=== PATIENT | female | born 1990 | race Caucasian/White ===

== ENCOUNTER 2023-09-04 17:46 | Emergency (ER) | payer BC ==
[2023-09-04 18:08] VITALS: TEMP 98.8
--- NOTE | 2023-09-04 18:48 | ERPHSYRPT ---
- History of Present Illness Time Seen by Provider: 09/04/23 18:46 Source: patient, family Exam Limitations: no limitations Patient Subjective Stated Complaint: Pt states that she went to the [facility] on Tuesday due to her ear felt clogged and while she was there she began having major anxiety, the anxiety has gotten worse since then and her ear is still clogged, pt also had a CT with contrast on Tuesday and unsure if that had something to do with her anxiety Triage Nursing Assessment: Pt brought to the ER by her , hypertensive, tachycardic, denies pain, tearful, right ear clogged, was told that she had a middle ear infection, pt is on adderall but has not taken it since and was afraid to take it on Tuesday thinking it would make her feel worse, pt takes alprazolam at night to help her sleep but hasn't tried taking it during the day to help with the anxiety, pulses normal, skin n/w/d, no difficulty breathing, doesn't appear to be in any distress Physician History: pt is received form Dr. 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 Pt reports Hx of anxiety but none at this level. No Si or HI. No hx trauma. Had Flu 2 weeks ago and got over it OK per pt. Had CT abd this week for abd pain now resolved finding stool thickened wall cecum, diverticulosis not active, adb is soft nntender without peritoneal signs mass or distension. No Cp dizziness, headache fever, shortness of breath but with maybe tightness of chest as part of anxiety per pt so will get cardiac labs and D dimer. Neuro exam normal mental status normal, Fundi benign. no rash no meningismis. TM still erythematous left normal rt. pharynx clear and swallowing OK in ER> Hx left hip pain but full ROM both hips nontender amb without pain. here in ER as confirmatory independent source of Hx. Discussed risks/benefits Ativan Tx, CXR, EKG, D dimer, trops, HCG, BNP, Thyroid T4 TSH, COvid Flu, Strep, RSV, Lactate, and they wish to proceed. These are ordered, results discussed., Timing/Duration: today Severity of Symptoms-Max: moderate Severity of Symptoms-Current: moderate Context related to: other (unknown) Suicidal thoughts: other (none) Associated Symptoms: anxiety Previous symptoms: other (increase in anxiety) Allergies/Adverse Reactions: No Known Drug Allergies Allergy (Verified 09/04/23 18:08) Home Medications: ALPRAZolam [Alprazolam] 0.5 mg PO HS 09/04/23 [History] Albuterol Sulfate [Albuterol Sulfate Hfa] 1 - 2 inh PO Q4-6HPRN PRN 09/04/23 [History] Dextroamphetamine/Amphetamine [Dextroamp-Amphetamin 20 mg Tab] 20 mg PO TID 09/04/23 [History] Doxycycline Hyclate 100 mg [Vibramycin 100 MG] 100 mg PO BID 09/04/23 [History] Hydroxyzine HCl 25 mg [Atarax 25 mg] 25 mg PO BID 09/04/23 [History] norgestimate-ethinyl estradioL [Gyk-Cb-Mpfjfa Tablet] 1 each PO DAILY 09/04/23 [History] Hx Influenza Vaccination/Date Given: No Hx Pneumococcal Vaccination/Date Given: No Travel Risk - International Travel Have you traveled outside of the country in past 3 weeks: No - Coronavirus Screening Are you exhibiting any of the following symptoms?: No Close contact with a COVID-19 positive Pt in past 14-21 Days: No - Vaccine Status Have you recieved a Covid-19 vaccination: No - Past Medical History Pertinent Past Medical History: Yes Other Medical History: sleeping disorder - Past Surgical History Past Surgical History: Yes Female Surgical History: Dilation & Curettage Other Surgical History: wisdom teeth - Female History Hx Last Menstrual Period: 08/27/2023 Hx Now: No - Social History Smoking Status: Current every day smoker Exposure to second hand smoke: Yes Drug Use: none Patient Lives Alone: No - Review of Systems Constitutional: No Fever, No Chills Eyes: No Symptoms Ears, Nose, & Throat: Ear Pain Respiratory: No Cough, No Dyspnea Cardiac: Other (chest tightness), No Chest Pain, No Edema, No Syncope Abdominal/Gastrointestinal: No Abdominal Pain, No Nausea, No Vomiting, No Diarrhea Genitourinary Symptoms: No Dysuria Musculoskeletal: No Back Pain, No Neck Pain Skin: No Symptoms, No Rash Neurological: No Dizziness, No Focal Weakness, No Sensory Changes Psychological: Anxiety, No Suicidal Ideations, No Hallucinations Endocrine: No Symptoms Hematologic/Lymphatic: No Symptoms Immunological/Allergic: No Symptoms All Other Systems: Reviewed and Negative - Nursing Vital Signs Nursing Vital Signs: Initial Vital Signs Temperature 98.8 F 09/04/23 17:55 Pulse Rate 123 H 09/04/23 17:55 Blood Pressure 168/120 09/04/23 17:55 O2 Sat by Pulse Oximetry 96 09/04/23 17:55 Pain Scale Pain Intensity 0 - Physical Exam General Appearance: no apparent distress Eyes, Ears, Nose, Throat Exam: normal ENT inspection, moist mucous membranes Neck Exam: normal inspection, non-tender, supple Respiratory Exam: normal breath sounds, lungs clear, No respiratory distress Cardiovascular Exam: regular rate/rhythm, No edema Gastrointestinal/Abdominal Exam: soft, No tenderness, No distention Extremities Exam: normal inspection, normal range of motion, No evidence of injury, No edema Peripheral Pulses: carotid (R): 2+, carotid (L): 2+, femoral (R): 2+, femoral (L): 2+, dorsalis-pedis (R): 2+, dorsalis-pedis (L): 2+ Current Suicidality: denies suicide plan Neurological 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, 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, oriented x 3 Appearance: appropriate appearance, no memory impairment Behavior/Eye Contact/Speech: alert & cooperative, good eye contact, normal speech Thoughts/Hallucinations: normal thought pattern, no apparent hallucination Skin Exam: normal color, warm, dry, No rash SpO2 Interpretation: normal SpO2: 96 O2 Delivery: Room Air - Course Nursing assessment & vital signs reviewed: Yes EKG Interpreted by Me: Sinus Rhythm, NORMAL AXIS, NORMAL INTERVALS, NORMAL QRS, NORMAL ST-T - Radiology Exams Chest X-ray Interpretation: Reviewed by me, No Pneumonia, No Pneumothorax Ordered Tests: Active Orders 24 hr Category Date Time Status 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 Care 09/04/23 19:34 Active EKG-ER Only STAT Care 09/04/23 19:33 Active Pulse Oximetry (ED) STAT Care 09/04/23 19:33 Active CHEST 1 VIEW (PORTABLE) Stat Exams 09/04/23 19:34 Taken CBC W DIFF Stat Lab 09/04/23 19:56 Completed CMP Stat Lab 09/04/23 19:56 Completed D-DIMER QUANTITATIVE Stat Lab 09/04/23 19:56 Completed HCG QUALITATIVE, SERUM Stat Lab 09/04/23 20:00 Completed Lactic Acid Stat Lab 09/04/23 19:55 Completed NT PRO BNPII Stat Lab 09/04/23 19:56 Completed TROPONIN Q4H Lab 09/04/23 19:56 Completed TROPONIN Q4H Lab 09/05/23 03:45 Ordered TSH [TSH, 3RD Generation] Stat Lab 09/04/23 19:56 Completed Medication Summary Discontinued Medications Generic Name Dose Route Start Last Admin Trade Name Freq PRN Reason Stop Dose Admin Lorazepam 1 mg 09/04/23 19:37 09/04/23 19:45 Lorazepam 1 Mg Tablet PO 09/04/23 19:38 1 mg STAT ONE Administration Lorazepam Confirm 09/04/23 19:43 Lorazepam 1 Mg Tablet Administered 09/04/23 19:44 Dose 1 mg .ROUTE .[place]-MED ONE Lab/Rad Data: Laboratory Result Diagrams 09/04/23 19:56 09/04/23 19:56 Laboratory Results 09/04/23 09/04/23 09/04/23 Range/Units 20:00 19:56 19:56 WBC (4.0-10.5) x10^3/uL RBC (4.1-5.4) x10^6/uL Hgb (12.0-16.0) g/dL Hct (35-47) % MCV (78-100) fL MCH (26-32) pg MCHC (32-36) g/dL RDW (11.5-14.0) % Plt Count (150-450) x10^3/uL MPV (7.5-11.0) fL Gran % (36.0-66.0) % Immature Gran % (Auto) (0.00-0.4) % Nucleat RBC Rel Count (0.00-0.1) % Eos # (Auto) (0-0.5) x10^3/uL Immature Gran # (Auto) (0.00-0.03) x10^3u/L Absolute Lymphs (auto) (1.0-4.6) x10^3/uL Absolute Monos (auto) (0.0-1.3) x10^3/uL Absolute Nucleated RBC (0.00-0.01) x10^3u/L Lymphocytes % (24.0-44.0) % Monocytes % (0.0-12.0) % Eosinophils % (0.00-5.0) % Basophils % (0.0-0.4) % Absolute Granulocytes (1.4-6.9) x10^3/uL Basophils # (0-0.4) x10^3/uL D-Dimer (0.0-0.50) mg/L Sodium (135-145) mmol/L Potassium (3.5-5.1) mmol/L Chloride (98-107) mmol/L Carbon Dioxide (22-30) mmol/L Anion Gap (5-15) MEQ/L BUN (7-17) mg/dL Creatinine (0.52-1.04) mg/dL Estimated GFR ML/MIN Glucose (74-106) mg/dL Lactic Acid (0.4-2.0) Calcium (8.4-10.2) mg/dL Total Bilirubin (0.2-1.3) mg/dL AST (14-36) U/L ALT (0-35) U/L Alkaline Phosphatase (38-126) U/L Troponin I (0.000-0.034) ng/mL NT-Pro-B Natriuret Pep (<300) pg/mL Serum Total Protein (6.3-8.2) g/dL Albumin (3.5-5.0) g/dL Free T4 (0.78-2.19) ng/dL TSH 3rd Generation 2.460 (0.47-4.68) mIU/L Serum HCG, Qual NEGATIVE (NEGATIVE) Influenza Type A Ag NEGATIVE (NEGATIVE) Influenza Type B Ag NEGATIVE (NEGATIVE) RSV (PCR) NEGATIVE (NEGATIVE) SARS-CoV-2 (PCR) NEGATIVE (NEGATIVE) 09/04/23 09/04/23 09/04/23 Range/Units 19:56 19:56 19:56 WBC (4.0-10.5) x10^3/uL RBC (4.1-5.4) x10^6/uL Hgb (12.0-16.0) g/dL Hct (35-47) % MCV (78-100) fL MCH (26-32) pg MCHC (32-36) g/dL RDW (11.5-14.0) % Plt Count (150-450) x10^3/uL MPV (7.5-11.0) fL Gran % (36.0-66.0) % Immature Gran % (Auto) (0.00-0.4) % Nucleat RBC Rel Count (0.00-0.1) % Eos # (Auto) (0-0.5) x10^3/uL Immature Gran # (Auto) (0.00-0.03) x10^3u/L Absolute Lymphs (auto) (1.0-4.6) x10^3/uL Absolute Monos (auto) (0.0-1.3) x10^3/uL Absolute Nucleated RBC (0.00-0.01) x10^3u/L Lymphocytes % (24.0-44.0) % Monocytes % (0.0-12.0) % Eosinophils % (0.00-5.0) % Basophils % (0.0-0.4) % Absolute Granulocytes (1.4-6.9) x10^3/uL Basophils # (0-0.4) x10^3/uL D-Dimer < 0.19 (0.0-0.50) mg/L Sodium (135-145) mmol/L Potassium (3.5-5.1) mmol/L Chloride (98-107) mmol/L Carbon Dioxide (22-30) mmol/L Anion Gap (5-15) MEQ/L BUN (7-17) mg/dL Creatinine (0.52-1.04) mg/dL Estimated GFR ML/MIN Glucose (74-106) mg/dL Lactic Acid (0.4-2.0) Calcium (8.4-10.2) mg/dL Total Bilirubin (0.2-1.3) mg/dL AST (14-36) U/L ALT (0-35) U/L Alkaline Phosphatase (38-126) U/L Troponin I < 0.012 (0.000-0.034) ng/mL NT-Pro-B Natriuret Pep < 20.0 (<300) pg/mL Serum Total Protein (6.3-8.2) g/dL Albumin (3.5-5.0) g/dL Free T4 1.14 (0.78-2.19) ng/dL TSH 3rd Generation (0.47-4.68) mIU/L Serum HCG, Qual (NEGATIVE) Influenza Type A Ag (NEGATIVE) Influenza Type B Ag (NEGATIVE) RSV (PCR) (NEGATIVE) SARS-CoV-2 (PCR) (NEGATIVE) 09/04/23 09/04/23 09/04/23 Range/Units 19:56 19:56 19:55 WBC 9.8 (4.0-10.5) x10^3/uL RBC 5.15 (4.1-5.4) x10^6/uL Hgb 15.5 (12.0-16.0) g/dL Hct 46.4 (35-47) % MCV 90.1 (78-100) fL MCH 30.1 (26-32) pg MCHC 33.4 (32-36) g/dL RDW 11.3 L (11.5-14.0) % Plt Count 239 (150-450) x10^3/uL MPV 10.9 (7.5-11.0) fL Gran % 74.7 H (36.0-66.0) % Immature Gran % (Auto) 0.5 H (0.00-0.4) % Nucleat RBC Rel Count 0.0 (0.00-0.1) % Eos # (Auto) 0.11 (0-0.5) x10^3/uL Immature Gran # (Auto) 0.05 H (0.00-0.03) x10^3u/L Absolute Lymphs (auto) 1.77 (1.0-4.6) x10^3/uL Absolute Monos (auto) 0.54 (0.0-1.3) x10^3/uL Absolute Nucleated RBC 0.00 (0.00-0.01) x10^3u/L Lymphocytes % 18.0 L (24.0-44.0) % Monocytes % 5.5 (0.0-12.0) % Eosinophils % 1.1 (0.00-5.0) % Basophils % 0.2 (0.0-0.4) % Absolute Granulocytes 7.33 H (1.4-6.9) x10^3/uL Basophils # 0.02 (0-0.4) x10^3/uL D-Dimer (0.0-0.50) mg/L Sodium 139 (135-145) mmol/L Potassium 4.1 (3.5-5.1) mmol/L Chloride 105 (98-107) mmol/L Carbon Dioxide 26 (22-30) mmol/L Anion Gap 12.2 (5-15) MEQ/L BUN 16 (7-17) mg/dL Creatinine 0.88 (0.52-1.04) mg/dL Estimated GFR 89.5 ML/MIN Glucose 82 (74-106) mg/dL Lactic Acid 0.9 (0.4-2.0) Calcium 9.6 (8.4-10.2) mg/dL Total Bilirubin 0.30 (0.2-1.3) mg/dL AST 23 (14-36) U/L ALT 16 (0-35) U/L Alkaline Phosphatase 94 (38-126) U/L Troponin I (0.000-0.034) ng/mL NT-Pro-B Natriuret Pep (<300) pg/mL Serum Total Protein 6.9 (6.3-8.2) g/dL Albumin 4.2 (3.5-5.0) g/dL Free T4 (0.78-2.19) ng/dL TSH 3rd Generation (0.47-4.68) mIU/L Serum HCG, Qual (NEGATIVE) Influenza Type A Ag (NEGATIVE) Influenza Type B Ag (NEGATIVE) RSV (PCR) (NEGATIVE) SARS-CoV-2 (PCR) (NEGATIVE) - Progress Progress: improved, re-examined Progress Note: 09/04/23 23:34 discussed risks/benefit of changing to Augmentin for her ROM and she and would like to proceed. we also discussed z leonie but decided not to that one due to both it and adderal increasing the Q T interval. 09/04/23 23:36 Discussed cardiac heart score of 3 or less with pt and spouse 1 for sys 1 for smoking , 0 for EKG, 1 for possible hptn and that there still could be a cardiac condition or some other thing causing the symptoms - they prefer outpt f/u with pMD rather than further w/u in ER or hospital admission at this time and that is a reasonable choice since no current CP and they have the capacity to make this choice. 09/04/23 23:40 09/04/23 23:41 09/04/23 23:45 anxiety is much better and pt would like DC now. Counseled pt/family regarding: lab results, diagnosis, need for follow-up, rad results, smoking cessation Medical Desision Making - Independent Historian Additional History obtained from: Spouse, Family - Discussion of managment Reviewed:: Test results, Need for additional workup Agreed on:: Treatment plan, need for follow-up - Diagnostic Testing Diagnostic test were ordered, analyzed, and reviewed by me: Yes Radiological Interpretation: Reviewed by me - Risk of complications The pt has a mod risk of morbidity or mortality based on: Need for prescription drug management The pt has a high risk of morbidity or mortality based on: Decision regarding hospitilization or escalation of hosp level of care - Departure Departure Disposition: Home Clinical Impression: anxiety - improved, ROM (right otitis media) Condition: Good Critical Care Time: No Referrals: MARK BOGGS PA [Primary Care Provider] - Follow up/PCP as directed Instructions: Anxiety, Adult (DC), Chest Pain (DC), Quitting Smoking for Teens and Young Adults Additional Instructions: although you did not have the classic chest pain, we are giving you those instructions as well since there still could be an underlying heart concern and followup with your Dr is advised. return meantime if any further symptoms or concerns. also see them to recheck ear. Prescriptions: Amox Tr/Potass Clav. 875 mg [Augmentin 875-125 Tablet] 875 mg PO BID #20 tablet
[2023-09-04] MEDS ORDERED: Ativan 1 MG ONE (19:43)
[2023-09-04] MEDS: Ativan 1 MG PO ONE (19:45)
[2023-09-04 20:02] LABS: Absolute Neutrophil Ct (ANC) 7.33 x10^3/uL (1.4-6.9); BASOPHIL % 0.2 % (0.0-0.4); Basophil (Absolute #) 0.02 x10^3/uL (0-0.4); Eosinophil % 1.1 % (0.00-5.0); Eosinophil (Absolute #) 0.11 x10^3/uL (0-0.5); Hematocrit 46.4 % (35-47); Hemoglobin 15.5 g/dL (12.0-16.0); IMMATURE GRAN # 0.05 x10^3u/L (0.00-0.03); IMMATURE GRAN % 0.5 % (0.00-0.4); Lymphocyte (Absolute #) 1.77 x10^3/uL (1.0-4.6); Mean Cell Volume 90.1 fL (78-100); Mean Corpuscular Hemoglobin 30.1 pg (26-32); Mean Corpuscular Hgb Concent. 33.4 g/dL (32-36); Mean Platelet Volume 10.9 fL (7.5-11.0); Monocyte (Absolute #) 0.54 x10^3/uL (0.0-1.3); Monocytes % 5.5 % (0.0-12.0); Neutrophil % 74.7 % (36.0-66.0); Platelet Count 239 x10^3/uL (150-450); Red Blood Count 5.15 x10^6/uL (4.1-5.4); Red Cell Distribution Width 11.3 % (11.5-14.0); White Blood Count 9.8 x10^3/uL (4.0-10.5)
[2023-09-04 20:30] LABS: NT PRO BNPII < 20.0 pg/mL (<300); TROPONIN < 0.012 ng/mL (0.000-0.034)
[2023-09-04 20:40] LABS: ALBUMIN 4.2 g/dL (3.5-5.0); ANION GAP 12.2 MEQ/L (5-15); BILIRUBIN,TOTAL 0.3 mg/dL (0.2-1.3); Calcium 9.6 mg/dL (8.4-10.2); Creatinine 1 0.88 mg/dL (0.52-1.04); EST GLOMERULAR FILTRATION RATE 89.5 ML/MIN; Potassium 4.1 mmol/L (3.5-5.1); Total Protein 6.9 g/dL (6.3-8.2)
[2023-09-04 20:49] LABS: INFLUENZA A NEGATIVE (NEGATIVE); INFLUENZA B NEGATIVE (NEGATIVE); RESPIRATORY SYNCTIAL VIRUS NEGATIVE (NEGATIVE); SARS-CoV-2 Xpert Express NEGATIVE (NEGATIVE)
[2023-09-04 21:06] VITALS: RESP 15
[2023-09-04 23:14] LABS: HCG SERUM TEST NEGATIVE (NEGATIVE)
[2023-09-04 23:39] VITALS: O2SAT 96
[2023-09-05 00:07] VITALS: BP 156/100; PULSE 98
--- NOTE | 2023-09-05 08:56 | XRAY ---
Indication: Chest tightness. Comparison: None Portable chest demonstrates normal heart, lungs, and bony thorax.
== END 2023-09-05 00:07 | disposition home or self-care (01) ==
LOC: ED 17:46
DX: F41.9 Anxiety disorder, unspecified (principal); H66.91 Otitis media, unspecified, right ear; Z79.899 Other long term (current) drug therapy; Z28.310 Unvaccinated for COVID-19; Z72.0 Tobacco use
CPT/HCPCS: 0241U; 36415; 71045; 80053; 83605; 83880; 84439; 84443; 84484; 84703; 85025; 85379; 93005; 93041; 94760; 99284; A9270-GY